=== PATIENT | female | born 1945 | race Caucasian/White ===

== ENCOUNTER 2020-04-11 09:04 | Day surgery (SDC) | payer OTHER ==
--- OUTSIDE RECORDS SUMMARY | 2020-04-11 09:35 | XMS REPORT | Continuity of Care Document ---
:1945 Author Organization [facility] t Address [address] [place] [address] Care Team Providers Name Role Phone Mar Luevano MD Attending Clinician Doctor Unassigned, Name Attending Clinician Unavailable Balta Olivo MD Attending Clinician Problems This patient has no known problems. Allergies, Adverse Reactions, Alerts This patient has no known allergies or adverse reactions. Medications This patient has no known medications. Procedures This patient has no known procedures. Encounters Start End Encounter Admission Attending Care Care Encounter Source Date/Time Date/Time Type Type Clinicians Facility Department ID 2019-04-26 2019-04-26 [facility] [id number] 10:24:00 23:59:00 Encounter Celestino Nails [id number] [place] [id number] [place] [id number] 2019-04-26 2019-04-26 Orders Doctor AKINS [id number] 00:00:00 00:00:00 Only UnassRACHEL he [id number] [place] [facility] [id number] 2018-11-16 2018-11-16 Office Pallavi MTHEBERT [id number] 09:27:00 10:11:00 Visit Randall Nails [id number] [place] [id number] [id number] [facility]92 Building 2018-11-09 2018-11-09 [facility] [id number] 09:54:01 23:59:00 Encounter Randall Nails [id number] [place] [id number] [place] [id number] 2018-11-09 2018-11-09 [place] [id number] 09:53:17 09:53:17 Encounter Randall Nails [id number] [place] [id number] [place] [id number] 2018-10-27 2018-10-27 [place] [id number] 00:00:00 00:00:00 Randall Nails [id number] [place] [id number] [facility] [id number] [facility] Building Results This patient has no known results.
[2020-04-11 09:43] LABS: MPV 8.8 fL (7.6-11.3)
[2020-04-11 10:03] LABS: Protime INR 0.97
[2020-04-11 10:19] LABS: Platelet Estimate ADEQ
[2020-04-11 10:59] VITALS: BMI 26.1
[2020-04-11] MEDS ORDERED: HYDROCODONE/APAP 7.5/325 MG TAB ONE (12:13)
--- NOTE | 2020-04-11 12:38 | RAD REPORT ---
EXAM DESCRIPTION: RAD - L Spine With Bending Views - 04/11/2020 11:50 am CLINICAL HISTORY: Back pain FINDINGS: Mild scoliosis There is good alignment of the lumbar spine from flexion to extension No fracture or dislocation Marked spondylosis L2-3 consisting disc space narrowing, osteophytes and subchondral sclerosis Disc space narrowing L5-S1 A pain pump is in place
[2020-04-11 14:16] VITALS: TEMP 98
[2020-04-11 14:17] VITALS: BP 121/62; O2SAT 96
--- NOTE | 2020-04-11 21:44 | RAD REPORT ---
EXAM DESCRIPTION: CTSpine Lumbar Wo Con04/11/2020 11:48 am CLINICAL HISTORY: Radiculopathy and back pain COMPARISON: None TECHNIQUE: Computed axial tomography lumbar spine was obtained with coronal and sagittal reconstruct ion. 12 cc 200 Isovue is administered into the thecal sac All CT scans are performed using dose optimization technique as appropriate and may include automated exposure control or mA/KV adjustment according to patient size. FINDINGS: Small disc bulge T12-L1 L1-2 unremarkable L2-3 disc is thinned. Vacuum phenomena is present. Subchondral sclerosis involves the vertebral endpl ates. Disc bulge and osteophytes are present. Mild encroachment upon the thecal sac. There is no spin al stenosis. Mild narrowing of the right neural foramina. L3-4 disc is thinned. Vacuum phenomena. Disc bulge with small subligamentous central disc herniation is present. Ligamentum flavum and facet hypertrophy. There is narrowing of the lateral aspects of the thecal sac. Mild narrowing of the neural foramina. Disc bulge and facet hypertrophy L4-5. Mild narrowing of the thecal sac. Mild to moderate narrowing l eft neural foramina L5-S1 disc is thinned. Thecal sac is normal caliber. The neural foramina are patent IMPRESSION: Spondylosis with small central subligamentous disc herniation L3-4. Narrowing of the lat eral aspects of the thecal sac as well as the lateral recesses. Spondylosis as described above Patient experienced immediate complication
--- NOTE | 2020-04-11 21:47 | RAD REPORT ---
EXAM DESCRIPTION: RAD - Myelography Lumbar - 04/11/2020 11:50 am CLINICAL HISTORY: Radiculopathy and back pain COMPARISON: None FINDINGS: The risks, benefits and alternatives to the procedure were explained to the patient and in formed consent obtained. The patient was placed prone into the fluoroscopy suite. The skin and subcutaneous tissues were anest hetized with lidocaine. Under fluoroscopic guidance a 22 gauge spinal needle was advanced into the th ecal sac at L2-3 level. 12 cc Isovue 200 was administered into the thecal sac. Frontal, oblique and lateral views of the lumbar spine were obtained. Fluoroscopy time 1.9 minute. Four fluoroscopic spot images obtained. Qssy-zl-dybazhhh scoliosis involves the spine. Spondylosis involves primarily L2-3, L3-4 and L4-5. Refer to the CT lumbar spine report for additional findings IMPRESSION: Lumbar myelogram.
== END 2020-04-11 14:00 | disposition home health service (06) ==
LOC: DS 09:04
PROVIDERS: ATTEND Specialist
DX: M51.26 Other intervertebral disc displacement, lumbar region (principal); M54.10 Radiculopathy, site unspecified; M47.896 Other spondylosis, lumbar region; M41.86 Other forms of scoliosis, lumbar region; Z20.822 Contact with and (suspected) exposure to COVID-19
CPT/HCPCS: 36415; 85049; 85610; 85730; 72131; 72114; 62304; Q9966

== ENCOUNTER 2021-07-16 14:35 | Day surgery (SDC) | payer OTHER ==
[2021-07-11 10:53] LABS: Absolute Lymphocytes (CBC) 1.7 K/uL (0.7-4.9); Hematocrit 36.9 % (36.0-45.0); MPV 8.8 fL (7.6-11.3); RBC Red Blood Cell Count 4.14 M/uL (3.86-4.86)
[2021-07-11 12:00] LABS: Urine Appearance CLEAR (Clear); Urine Bilirubin NEGATIVE (Negative); Urine Blood NEGATIVE (Negative); Urine Color YELLOW (Yellow); Urine Glucose NEGATIVE (Negative); Urine Microscopic Reflex NO UMIC; Urine Protein NEGATIVE (Negative); Urine Specific Gravity 1.015 (1.005-1.030); Urine Urobilinogen 0.2 mg/dL (0.2-1.0)
[2021-07-16] MEDS: FENTANYL CITR 100 MCG/2 ML ONE ×2 (09:10→09:46)
[2021-07-16] MEDS: Levofloxacin500mg IV 500 MG/100 ML BAG IV ONE ×2 (09:40→10:20)
[2021-07-16] MEDS: Ringers Lactate 1,000 ML IV ONE ×2 (13:21→13:30)
[2021-07-16] MEDS: HYDROMORPHONE HCL 2 MG/ML inj ONE ×4 (13:46→14:01)
[2021-07-16] MEDS: HYDROMORPHONE HCL 1 MG/ML INJ ONE ×2 (14:06→14:12)
--- NOTE | 2021-07-16 14:13 | P.BOP ---
Preoperative diagnosis: anterior stage 2 prolapse, w apical, post defects occult RICKY Postoperative diagnosis: same Primary procedure: bilat SSLFcolpopexy, Ant repair w biologic gragft augmentation Secondary procedure: distal post wall and perineal body repairs, TVT-O cysto Insurance Risk Analyst: Celine Waggoner Estimated blood loss: <50 Specimen: none Findings: 0/+1/-2/6/mod/7/0/-2/na,perineal body defect,cysto w normal efflux Anesthesia: General Complications: None Drain(s): Nasogastric Implants: coloplast dermal graft, TVT-O Fluids & blood products: [id number] Transferred to: Recovery Room Condition: Good
[~2021-07-16 14:35] MED LIST: ACETAMINOPHEN 500 MG TAB PO PRN; CEFAZOLIN SODIUM 1 GM/VIAL ONE; EPHEDRINE SULF 50 MG/ML VIAL ONE; FENTANYL CITR 100 MCG/2 ML ONE; GLYCOPYRROLATE 0.2 MG/ML SYR ONE; HYDROMORPHONE HCL 1 MG/ML INJ IV PRN; KETOROLAC 30 MG/ML INJ ONE; LIDOCAINE 1% MPF 5 ML VIAL ONE; LIDOCAINE 1% W/EPI 1:100,000 MDV 50 ML VIAL ONE; Levofloxacin500mg IV 500 MG/100 ML BAG IV ONE; MEPERIDINE HCL 25 MG/ML SYR ONE; MIDAZOLAM HCL 2 MG/2 ML INJ ONE; NA CHLORIDE 0.9% 100 ML IV ONE; NEOSTIGMINE 1 MG/ML -5 ML ONE; ONDANSETRON 4 MG/2 ML VIAL IV PRN; ONDANSETRON 4 MG/2 ML VIAL ONE; PROMETHAZINE INJ 25 MG/ML AMP IV PRN; Ringers Lactate 1,000 ML IV ONE; VASOPRESSIN 20 UNIT/ML VIAL ONE; dexAMETHasone 10 MG/ML VIAL ONE; propofoL 200 MG/20 ML VIAL IV ONE
[2021-07-16 14:56] VITALS: O2SAT 99
[2021-07-16] MEDS ORDERED: HYDROMORPHONE ORAL 2 MG TAB PO PRN (15:00)
[2021-07-16 16:15] VITALS: BMI 25.9
[2021-07-16] MEDS: Ringers Lactate 1,000 ML IV SCH (18:59)
[2021-07-16] MEDS: HYDROCODONE/APAP 7.5/325 MG TAB PO PRN ×2 (19:06→23:09)
[2021-07-16] MEDS ORDERED: ATORVASTATIN 10 MG TAB PO SCH (21:00)
--- NOTE | 2021-07-17 02:12 | OP ---
Date of Procedure: 07/16/2021 Surgeon: Fay Luna MD Nephrologist: Celine Waggoner. Preoperative Diagnoses: Stage II anterior wall prolapse with apical posterior defect and occult stre ss urinary incontinence. Postoperative Diagnoses: Stage II anterior wall prolapse with apical posterior defect and occult str ess urinary incontinence. Procedures Performed: 1.Bilateral sacrospinous ligament fixation and colpopexy. 2.Anterior repair with biologic graft augmentation. 3.Distal posterior wall repair, perineal body repair, and mid urethral sling (TVT-O). 4.Cystoscopy. Ebl: 50. Anesthesia: General. Complications: No complications. Drains: Solomon catheter. Condition: Stable. Findings: 0, +1, -2, 6, moderate 7, 0, -2 NA perineal body defect, which opened the genital hiatus t o 6 cm. On closure, this was well reduced to 3.5 cm. Cystoscopy was performed with normal ureters o n both sides. This was not quite evident until urethral Glidewire was placed to ensure that they wer e patent. Indications: The patient is a 75-year-old female who complained of symptomatic vaginal prolapse. Th is was evaluated and fully investigated. Given all the different options including pessary, surgical treatment including abdominal and vaginal repairs. Closure would not be feasible so this was exclud ed. The patient was educated on all these then she came back and was consented for vaginal prolapse repair. Past history of prolapse repair in 1963. She has done well on this since. Description Of Procedure: After informed consent was verified she was taken back to the OR, placed i n supine fashion on the table. General anesthesia was given and placed in a dorsal lithotomy positio n. Abdomen, vulva, vagina, and perineum were prepped and draped in a sterile fashion. Solomon was maninder emanuel to drain the bladder. POP-Q was done and is as dictated above. Ischial spines were palpated. Vaginal apex was inspected and anterior defect was well inspected. Midline anterior wall was held with Allis clamps in the distal and proximal part and injected with di lute vasopressin 20 cc in the midline and lateral wall. Midline incision was made with a scalpel and extended with scissors to the urethrovesical junction and to the vaginal apex. Dissection was vannessa ed down to separate the bladder from the underlying fibroconnective tissue all the way to the right p aravaginal space and pararectal space was entered sharply with the help of scissors guiding muscle to the ischial spine and dissection was carried and the spine was cleaned up. There was a slight scar on the right pararectal space that made it difficult for me to the expose the sacrospinous ligament a dequately. So the white line dissection was performed to expose this and then went onto the left cady e. Paravaginal space and pararectal spaces were entered. Ischial spine was palpated. Sacrospinous ligament and the coccygeus muscle were cleaned out and the same was done with the paravaginal space o n the left side. There was a minimal enterocele at the apex, which was corrected as well. 3-0 Monoc ryl was used to put a pursestring suture to reduce the anterior wall. I then went on to open the Capio device with a Prolene suture, took a bite on the left sacrospinous m id ligament and close to the ischial spine within 1 cm on the right side as it was difficult to disse ct much more laterally on the ligament. Potentially she could have had repair here at that time. Then the paravaginal white line was sutured with the Capio PDS similarly on both sides and all of the se were held on retractors. There were three 2-0 Prolene sutures taken in the midline and on both si soco with the proximal end near the vault without entering the vaginal epithelium and superiorly simil ar three 2-0 PDS sutures were taken in the midline and on either side in order for the distal attachm ent of the graft. Graft was fashioned as an 8 x 5 x 6. The anteroposterior diameter was 5 cm. With the culdoplasty do ne, Dermagraft was used for this purpose. The 3 proximal Prolene sutures were tied to the graft and 3 distal midline PDS sutures were tied. Th en sacrospinous sutures were attached as well as the 0 PDS sutures in the middle of the lateral aspec t of the graft. The sacrospinous ligaments were tied all the way down at the level of the sacrospino us and the paravaginal sutures were also placed. There was no tension on the graft. The vaginal epi thelium could be trimmed, however, I resisted the temptation to do this to prevent further vaginal na rrowing. Closure of this epithelium was done with a continuous running 2-0 Vicryl stitch. Attention was directed to the bladder and suburethral area. Two Allis clamps were placed on either s yoselyn of the midline, injected with dilute vasopressin 10 cc in the center as well as on both sides. T he patient was placed in high lithotomy and 1 cm incision was made in the midline. Dissection was pe rformed at a 45-degree angle to the horizontal and vertical planes hugging the inferior pubic ramus a nd the space opened without any difficulty on the right side. On the left side it was slightly more difficult, but was unremarkable. Then wing guide was placed, spike was passed hugging the pubic jose alfredo s, exiting at least 2 cm outside the groin and much more inferior to the adductor longus tendon. Sim ilar pass on the opposite side and mesh was grasped in the middle with the Allis clamp to maintain th e tensioning and once this was done appropriately, the mesh and the sheath were cut and removed. The groin incisions sealed with Dermabond. Irrigation of the mesh was done with the antibiotic solution, closed with the help of 3-0 Vicryl in a continuous running locked fashion. Once this was done, no evidence of any erosion of the lateral lawson lcus. Solomon removed. Cystoscopy performed with the 30 degree lens and then 70 degree. Both ureteri c orifices had jets of urine and the Glidewire was passed just to make sure that they were patent and there was no evidence of any obstruction. Then Solomon was replaced after draining the bladder. Attention directed posteriorly. The remnants of the hymen were held with 2 Allis clamps. Then a triangular incision was made on the perineum after injecting dilute vasopressin 10 cc. This dissection was performed with the help of the scalpel. The n incision was extended superiorly into the posterior vaginal wall. Epithelium and sub epithelium were dissected away from the fibromuscular tissue. It was very difficu lt to perform this on the right lateral aspect and the distal part of the canal. I made sure that all the lateral long were exposed. There was no evidence of any deep transverse pe rineum or bulbospongiosus muscle as this seemed to be replaced with scar tissue. The edges of the sc ar tissue were loosened up without any tension, brought together and sutured with the help of a 2-0 V icryl suture x3. The rest of the perineal body was reconstructed with interrupted 2-0 Vicryl. Then, the distal rectovaginal septum was cleared up with the help of 0 Vicryl sutures. Then, epithelium, without being trimmed, was closed with the help of continuous running lock suture onto the hymen and then subcutaneous suture in here. Three interrupted cutaneous sutures were placed on the top. Recta l exam was negative. No evidence of any injury to the bowel or bleeding. Instrument, needle, and sponge counts were correct. The patient was recovered from anesthesia and ta ayo to PACU in stable condition. PRINCE/ORLY Voice ID: [id number] Report ID: [id number]
[2021-07-17] MEDS: Ringers Lactate 1,000 ML IV SCH (02:13)
[2021-07-17] MEDS: HYDROCODONE/APAP 7.5/325 MG TAB PO PRN ×2 (03:00→08:30)
[2021-07-17 05:57] LABS: Absolute Lymphocytes (CBC) 1.7 K/uL (0.7-4.9); Hematocrit 32.6 % (36.0-45.0); MPV 8.4 fL (7.6-11.3); RBC Red Blood Cell Count 3.62 M/uL (3.86-4.86)
[2021-07-17 06:11] LABS: Potassium 4.1 mmol/L (3.5-5.1)
[2021-07-17] MEDS ORDERED: LEVOTHYROXINE SOD 0.05 MG TABLET PO SCH (06:30)
[2021-07-17] MEDS ORDERED: PNEUMOCOCCAL VACCINE 0.5 ML IMVAC ONE (08:00)
[2021-07-17 08:37] VITALS: BP 139/69; TEMP 98.7
[2021-07-17] MEDS ORDERED: HOME MED 1 EA UNK (Irbesartan [Irbesartan] 300 MG Tablet) PO SCH ×2 (09:00)
[2021-07-17] MEDS ORDERED: EZETIMIBE 10 MG TAB PO SCH (09:00)
[2021-07-17] MEDS ORDERED: PREGABALIN 75 MG CAP PO SCH (09:00)
[2021-07-17] MEDS ORDERED: CELECOXIB 100 MG CAPSULE PO SCH (09:00)
[2021-07-17] MEDS ORDERED: HOME MED 1 EA UNK (Celecoxib [Celebrex] 200 MG Capsule) PO SCH (09:00)
[2021-07-17] MEDS ORDERED: HOME MED 1 EA UNK (Pravastatin Sodium [Pravastatin Sodium] 20 MG Tablet) PO SCH (09:00)
[2021-07-17] MEDS ORDERED: AMLODIPINE 5 MG TAB PO SCH (09:00)
[2021-07-17] MEDS ORDERED: CONJUGATED ESTROGENS VAG SCH (17:00)
== END 2021-07-17 10:47 | disposition home or self-care (01) ==
LOC: OR 14:35 → 2ND-WC 14:36 → OR 07-17 10:47
PROVIDERS: ATTEND Obstetrics & Gynecology
PROC: 0JUC0JZ Supplement of Pelvic Region Subcutaneous Tissue and Fascia with Synthetic Substitute, Open Approach (ICD-10-PCS; 2021-07-16)
PROC: 0JQC0ZZ Repair Pelvic Region Subcutaneous Tissue and Fascia, Open Approach (ICD-10-PCS; 2021-07-16)
PROC: 0HQ9XZZ Repair Perineum Skin, External Approach (ICD-10-PCS; 2021-07-16)
PROC: 0USG7ZZ Reposition Vagina, Via Natural or Artificial Opening (ICD-10-PCS; principal; 2021-07-16 08:30)
DX: N81.2 Incomplete uterovaginal prolapse (principal); N39.3 Stress incontinence (female) (male); I10 Essential (primary) hypertension; K59.03 Drug induced constipation; N39.43 Post-void dribbling; R73.03 Prediabetes; Z20.822 Contact with and (suspected) exposure to COVID-19
CPT/HCPCS: 57282; 57288; 57260; 57267; 85025 ×2; 80048; 36415 ×2; 81003; 94010 ×3; U0002; J2704; J2250; J1170 ×3; J3010 ×3; J1100; J2175; J2710; J7120 ×4; J2405; J2800; J0690

== ENCOUNTER 2023-07-05 23:02 | Emergency (ER) | payer OTHER ==
--- OUTSIDE RECORDS SUMMARY | 2023-07-05 23:06 | XMS REPORT | Continuity of Care Document ---
Author Name Unknown Address [address] [facility] [address] [place] [address] [facility] Address [address] [facility] [address] [place] [address] Care Team Providers Care Cruise Agent Name Role Phone JOEY PAZ Primary Care Physician Laurent lott [email or web address] Attending Clinician Carlos Manuel Lewis MD Attending Clinician [phone] CARLOS MANUEL RANDHAWA Attending Clinician CARLOS MANUEL Awad Attending Clinician Ivis Merlos, [facility] Main Attending Clinician Ivis Shaw MD, Celestino Manuel Attending Clinician [phone] CELESTINO SHAW Attending Clinician Nba mcnally Doctor Unassigned, [place] Attending Clinician Devin Olivo MD, Randall Gifford Attending Clinician 1, [facility] Attending Clinician Gabbie Adame PHD Attending Clinician [phone] [email or web address] Admitting Clinician Laurent lott Payers Payer Name Policy Type Policy Number Effective Date Expirati on Date Source Problems Condition Name Condition Details Condition Category Status Onset Date Resolution Date Last Treatment Date Treating Clinician Comments Source Pain Pain Disease Active 04-21 00:00: 00 [facility] 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 [facility] Allergies, Adverse Reactions, Alerts Allergy Name Allergy Type Status Severity Reaction(s) Onset Date Inactive Date Treating Clinician Comments Source Codeine Propensi ty to adverse reaction s to drug Active Nausea and/or Vomiting 04-24 00:00: 00 [facility] CODEINE DRUG INGREDI Active Med N/V 04-24 00:00: 00 [facility] PENICILL INS Drug Class Active High SOB 04-29 00:00: 00 [facility] Penicill ins Propensi ty to adverse reaction s to drug Active Swelling 04-29 00:00: 00 [facility] Penicill ins Propensi ty to adverse reaction s to drug Active Swelling 04-29 00:00: 00 [facility] Social History Social Habit Start Date Stop Date Quantity Comments [facility] 2019-10-26 00:00:00 2019-10-26 00:00:00 [facility] Alcohol intake 2018-10-26 00:00:00 2018-10-26 00:00:00 0 /d [facility] Tobacco use and exposure 2016-04-14 00:00:00 2016-04-14 00:00:00 Smokeless tobacco non-user [facility] Sex Assigned At [birth year] 00:00:00 [facility] Smoking Status Start Date Stop Date Source Never smoked tobacco [facility] Medications Ordered Medication Name Filled Medication Name Start Date Stop Date Current Medication? Ordering Clinician Indication Dosage Frequency Signature (SIG) Comments Components Source pregabalin (LYRICA) 75 mg capsule 11-16 14:52: 40 11-16 00:00 :00 No 75mg Take 75 mg by mouth 2 (two) times daily. [facility] pregabalin (LYRICA) 75 mg capsule 11-16 00:00: 00 Yes [id number] 75mg Take 1 capsule by mouth 3 (three) times daily. [facility] contrast previously administere d 0 mL 11-09 15:15: 00 11-09 15:32 :00 No Intravenou s, ONCE, 1 dose, 11/09/18 at 1015, Routine [facility] iohexol (OMNIPAQUE 350 BULK-100 mL) injection 100 mL 11-09 15:15: 00 11-09 15:28 :00 No 100mL 100 mL, Intravenou s, ONCE, 1 dose, 11/09/18 at 1015, Routine [facility] diazepam (VALIUM) 5 mg tablet 07-07 16:55: 22 Yes 5mg Take 5 mg by mouth at bedtime. [facility] HYDROmorphO ne (DILAUDID) 2 mg tablet 07-07 16:55: 22 Yes 4mg Take 4 mg by mouth 2 (two) times daily. [facility] pregabalin (LYRICA) 75 mg capsule 07-07 16:55: 22 Yes 75mg Take 75 mg by mouth 2 (two) times daily. [facility] amLODIPine 5 mg tablet 07-07 16:55: 22 Yes 5mg Take 5 mg by mouth daily. [facility] pravastatin 20 mg tablet 07-07 16:55: 22 Yes 20mg Take 20 mg by mouth at bedtime. [facility] irbesartan 300 mg tablet 07-07 16:55: 22 Yes 300mg Take 300 mg by mouth daily. [facility] baclofen 10 mg tablet 07-07 16:55: 22 Yes 10mg Take 10 mg by mouth 3 (three) times daily. [facility] HYDROcodone -acetaminop hen 10-325 mg tablet 07-07 16:55: 22 Yes 1{tbl} Take 1-2 tablets by mouth every 6 (six) hours. [facility] fluticasone -vilanterol (BREO ELLIPTA) 100-25 mcg/dose DsDv 07-07 16:55: 22 Yes 1{puff} Inhale 1 Puff daily. [facility] CELEBREX 200 MG ORAL CAP 07-07 16:55: 22 Yes Take 200 mg by mouth daily. [facility] levothyroxi ne (SYNTHROID) 50 mcg tablet 07-07 16:55: 22 Yes 50ug Take 50 mcg by mouth every morning. [facility] CELEBREX 200 MG ORAL CAP 07-07 11:55: 22 Yes Take 200 mg by mouth daily. [facility] levothyroxi ne (SYNTHROID) 50 mcg tablet 07-07 11:55: 22 Yes 50ug Take 50 mcg by mouth every morning. [facility] diazepam (VALIUM) 5 mg tablet 07-07 11:55: 22 Yes 5mg Take 5 mg by mouth at bedtime. [facility] HYDROmorphO ne (DILAUDID) 2 mg tablet 07-07 11:55: 22 Yes 4mg Take 4 mg by mouth 2 (two) times daily. [facility] amLODIPine 5 mg tablet 07-07 11:55: 22 Yes 5mg Take 5 mg by mouth daily. [facility] pravastatin 20 mg tablet 07-07 11:55: 22 Yes 20mg Take 20 mg by mouth at bedtime. [facility] irbesartan 300 mg tablet 07-07 11:55: 22 Yes 300mg Take 300 mg by mouth daily. [facility] baclofen 10 mg tablet 07-07 11:55: 22 Yes 10mg Take 10 mg by mouth 3 (three) times daily. [facility] HYDROcodone -acetaminop hen 10-325 mg tablet 07-07 11:55: 22 Yes 1{tbl} Take 1-2 tablets by mouth every 6 (six) hours. [facility] fluticasone -vilanterol (BREO ELLIPTA) 100-25 mcg/dose DsDv 07-07 11:55: 22 Yes 1{puff} Inhale 1 Puff daily. [facility] Vital Signs Vital Name Observation Time Observation Value Comments S everardo Systolic blood pressure 2018-11-16 14:29:00 116 mm[Hg] [facility] Diastolic blood pressure 2018-11-16 14:29:00 65 mm[Hg] [facility] Heart rate 2018-11-16 14:29:00 76 /min [facility] Body temperature 2018-11-16 14:29:00 36.33 [facility] Respiratory rate 2018-11-16 14:29:00 22 /min [facility] Body height 2018-11-16 14:29:00 162.6 cm [facility] Body weight 2018-11-16 14:29:00 65.499 kg [facility] BMI 2018-11-16 14:29:00 24.79 kg/m2 [facility] Systolic blood pressure 2018-11-16 14:29:00 116 mm[Hg] [facility] Diastolic blood pressure 2018-11-16 14:29:00 65 mm[Hg] [facility] Heart rate 2018-11-16 14:29:00 76 /min [facility] Body temperature 2018-11-16 14:29:00 36.33 [facility] Respiratory rate 2018-11-16 14:29:00 22 /min [facility] Body height 2018-11-16 14:29:00 162.6 cm [facility] Body weight 2018-11-16 14:29:00 65.499 kg [facility] BMI 2018-11-16 14:29:00 24.79 kg/m2 [facility] Systolic blood pressure 2018-10-26 21:51:00 130 mm[Hg] [place] [facility] Diastolic blood pressure 2018-10-26 21:51:00 71 mm[Hg] [facility] Heart rate 2018-10-26 21:51:00 84 /min [facility] Body temperature 2018-10-26 21:51:00 36.61 Ashley [facility] Respiratory rate 2018-10-26 21:51:00 17 /min [facility] Body height 2018-10-26 21:51:00 162.6 cm [facility] Body weight 2018-10-26 21:51:00 65.772 kg [facility] BMI 2018-10-26 21:51:00 24.89 kg/m2 [facility] Procedures Procedure Date / Time Performed Performing Clinicia n Source CONSENT/REFUSAL FOR DIAGNOSIS AND TREATMENT 2022-12-31 15:26:13 Doctor Unassigned, [place] [facility] ASSIGNMENT OF BENEFITS 2022-12-31 15:25:53 Docto r Unassigned, [place] [facility] XR LUMBAR SPINE 2 VW 2019-04-26 16:38:40 Aaron Shaw [facility] ASSIGNMENT OF BENEFITS 2019-04-26 16:19:35 Docto r Unassigned, [place] [facility] CT ANGIOGRAM HEAD 2018-11-09 15:39:20 Randall Olivo [facility] CT ANGIOGRAM NECK 2018-11-09 15:38:07 Randall Olivo [facility] CONSENT/REFUSAL FOR DIAGNOSIS AND TREATMENT 2018-11-09 14:51:02 Doctor Unassigned, [place] [facility] ASSIGNMENT OF BENEFITS 2018-11-09 14:50:43 Docto r Unassigned, [place] [facility] ASSIGNMENT OF BENEFITS 2018-10-26 20:32:06 Docto r Unassigned, [place] [facility] Encounters Start Date/Time End Date/Time Encounter Type Admission Type Attending Clinicians Care Facility Care Department Encounter ID Source 2023-01-20 00:00:00 2023-01-20 00:00:00 Outpatient [email or web address] diyala_S [facility] [id number] [facility] 2023-01-14 16:58:00 2023-01-14 23:59:00 Hospital Encounter Darrell Carlos Manuel Ducnan [facility] 1.114 350.1.13.10 4.2.7.2.686 [id number] [facility] 2023-01-14 00:00:00 2023-01-14 23:59:00 Outpatient R CARLOS MANUEL RANDHAWA [facility] OUT [id number] [facility] 2022-12-31 10:30:00 2022-12-31 10:45:00 [employer] Developer Visit Pob, [facility].114 350.1.13.10 4.2.7.2.686 [id number] [facility] 2022-12-31 10:30:00 2022-12-31 10:30:00 Outpatient R CELESTINO SHAW [facility] [id number] [facility] 2022-12-31 00:00:00 2022-12-31 00:00:00 Orders Only Doctor Unassigned, [place] [facility] 1.114 350.1.13.10 4.2.7.2.686 [id number] [facility] 2019-04-26 10:24:00 2019-04-26 23:59:00 [facility] 350.1.13.10 4.2.7.2.686 [id number] 2019-04-26 10:24:00 2019-04-26 23:59:00 Hospital Encounter Celestino Shaw [facility] 1..114 350.1.13.10 4.2.7.2.686 [id number] [facility] 2019-04-26 00:00:00 2019-04-26 00:00:00 Orders Only Doctor Unassigned, [place] [facility] 1.2.840.114 350.1.13.10 4.2.7.2.686 [id number] 2019-04-26 00:00:00 2019-04-26 00:00:00 Orders Only Doctor Unassigned, [place] [facility] 1.2.840.114 350.1.13.10 4.2.7.2.686 [id number] [facility] 2018-11-16 09:27:00 2018-11-16 10:11:00 Office Visit Randall Olivo [facility] 1.2.840.114 350.1.13.10 4.2.7.2.686 [id number] 2018-11-16 09:27:00 2018-11-16 10:11:00 Office Visit Randall Olivo [facility] 1.2.840.114 350.1.13.10 4.2.7.2.686 [id number] [facility] 2018-11-09 09:54:01 2018-11-09 23:59:00 Hospital Encounter Randall Olivo [facility] 1.2.840.114 350.1.13.10 4.2.7.2.686 [id number] 2018-11-09 09:54:01 2018-11-09 23:59:00 Hospital Encounter Randall Olivo [facility] 1.2.840.114 350.1.13.10 4.2.7.2.686 [id number] [facility] 2018-11-09 09:53:17 2018-11-09 09:53:17 Hospital Encounter Pallavi [facility] 1.2.840.114 350.1.13.10 4.2.7.2.686 [id number] [facility] 2018-11-09 09:53:17 2018-11-09 09:53:17 Hospital Encounter Randall Olivo [facility] 1.2.840.114 350.1.13.10 4.2.7.2.686 [id number] 2018-10-27 00:00:00 2018-10-27 00:00:00 Telephone Randall Olivo [facility] 1.2.840.114 350.1.13.10 4.2.7.2.686 [id number] [facility] 2018-10-27 00:00:00 2018-10-27 00:00:00 Telephone Randall Olivo [facility] 1.2.840.114 350.1.13.10 4.2.7.2.686 [id number] 2018-10-26 17:19:12 2018-10-26 17:34:12 [employer] Et[employer] Developer Visit 1, [facility] Alyssa Gabbie Randall Pichardo [facility] 1.2.840.114 350.1.13.10 4.2.7.2.686 [id number] [facility] 2018-10-26 16:24:25 2018-10-26 17:09:11 Office Visit Randall Olivo [facility] 1.2.840.114 350.1.13.10 4.2.7.2.686 [id number] [facility] 2018-10-26 00:00:00 2018-10-26 00:00:00 Orders Only Doctor Unassigned, [place] [facility] 1.2.840.114 350.1.13.10 4.2.7.2.686 [id number] [facility] Results Test Description Test Time Test Comments Results Result Comments Source XR LUMBAR SPINE 2 VW 2019-04 16:59:3 7 HISTORY: ?Low back pain. FINDINGS: AP and lateral views of the lumbar spines are obtained andcompared with 04/24/2015 study. 5 lumbar vertebrae with no acute compressionfracture or dislocation. No aggressive bone lesions. Atherosclerosis withcalcification noted in the aorta and iliac arteries without an aorticaneurysm. Moderate levoscoliosis in the AP view noted. Note made of constipation. L2-L3: Disc space is narrowed by more than 70% with vacuum phenomenon,endplate sclerosis and osteophytes along the vertebral margins. Slightinterval worsening in the severity of changes noted since April 2015ud. L3-L4: Disc space is narrowed by more than 70% with small osteophytes alongthe ventral vertebral margins. Minimal worsening in the severity notedsince 2015 study. L5-S1: Disc space is narrowed by more than 60% withdegeneration/calcification in the disc material and soft small osteophytesalong the ventral vertebral margins, unchanged. Facet arthritis noted at lower 3 lumbar levels. Since the previous study,intrathecal catheter is inserted with the tip of the catheter located atthe level of T12. Sacroiliac joints appear normal. CONCLUSIONS:1. Mid lumbar levoscoliosis.2. Degenerative disc disease at L2-L3, L3-L4 with interval worsening sinceFebruary 2015 study. [facility], [facility] Results Inft User - 04/26/2019 11:00 AM CSTHISTORY: Low back pain.FINDINGS: AP and lateral views of the lumbar spines are obtained andcompared with 04/24/2015 study. 5 lumbar vertebrae with no acute compressionfracture or dislocation. No aggressive bone lesions. Atherosclerosis withcalcification noted in the aorta and iliac arteries without an aorticaneurysm.Moderate levoscoliosis in the AP view noted. Note made of constipation.L2-L3: Disc space is narrowed by more than 70% with vacuum phenomenon,endplate sclerosis and osteophytes along the vertebral margins. Slightinterval worsening in the severity of changes noted since April 2015ud.L3-L4: Disc space is narrowed by more than 70% with small osteophytes alongthe ventral vertebral margins. Minimal worsening in the severity notedsince 2016 study.L5-S1: Disc space is narrowed by more than 60% withdegeneration/calcification in the disc material and soft small osteophytesalong the ventral vertebral margins, unchanged.Facet arthritis noted at lower 3 lumbar levels. Since the previous study,intrathecal catheter is inserted with the tip of the catheter located atthe level of T12. Sacroiliac joints appear normal.CONCLUSIONS:1. Mid lumbar levoscoliosis.2. Degenerative disc disease at L2-L3, L3-L4 with interval worsening sinceFebruary 2016 study. [facility] CT ANGIOGRAM HEAD 2018-10 16:23:0 8 No significant stenosis or aneurysm is present in the intracranial orcervical vessels Of note, evaluation for potential trigeminal neuralgia is significantlylimited due to poor visualization of the trigeminal nerves on the currentstudy. If there is persistent clinical concern for trigeminal neuralgia, anMRI of brain utilizing trigeminal neuralgia protocol may provide moreinformation.* * * * * * * * ORIGINAL REPORT * * * * * * * *CT ANGIOGRAM HEAD,CT ANGIOGRAM NECK HISTORY: Female 73 years left sided facial pain, consider trigeminalneuralgia or temporal arteritis. COMPARISON: None TECHNIQUE: Routine CTA head and neck were performed following theadministration of IV contrast. Coronal and sagittal MIP images weregenerated and reviewed. FINDINGS: CTA head: The PICA origin is visualized bilaterally. The basilar artery is normal incaliber. The superior cerebellar arteries are patent. The posteriorcerebral arteries are patent. A medium-sized right posterior communicatingartery is present and a small left posterior communicating artery ispresent. The distal cervical, petrous, cavernous and supraclinoid internal carotidartery segments are patent. The anterior and middle cerebral arteries arepatent. The brain parenchyma is grossly unremarkable. CTA NECK: Classic 3 vessel aortic arch branching anatomy is noted. The arch and archvessel origins are widely patent. The innominate and subclavian arteriesare widely patent. The common carotid arteries are widely patent. The carotid bulbs andcervical internal carotid arteries are widely patent. Trace atheroscleroticcalcifications are seen in the right bulb and proximal cervical ICA. The vertebral arteries are patent from their subclavian origins through thevertebrobasilar junction. The vertebral arteries are codominant. Mildatherosclerotic plaque at the origin of the right vertebral artery resultsin no more than mild luminal narrowing. [facility], [facility] Inft User - 11/09/2018 11:37 AM CDT* * * * * * * * ORIGINAL REPORT * * * * * * * *CT ANGIOGRAM HEAD,CT ANGIOGRAM NECKHISTORY: Female 73 years left sided facial pain, consider trigeminalneuralgia or temporal arteritis. COMPARISON: NoneTECHNIQUE: Routine CTA head and neck were performed following theadministration of IV contrast. Coronal and sagittal MIP images weregenerated and reviewed.FINDINGS:CTA head:The PICA origin is visualized bilaterally. The basilar artery is normal incaliber. The superior cerebellar arteries are patent. The posteriorcerebral arteries are patent. A medium-sized right posterior communicatingartery is present and a small left posterior communicating artery ispresent.The distal cervical, petrous, cavernous and supraclinoid internal carotidartery segments are patent. The anterior and middle cerebral arteries arepatent.The brain parenchyma is grossly unremarkable.CTA NECK:Classic 3 vessel aortic arch branching anatomy is noted. The arch and archvessel origins are widely patent. The innominate and subclavian arteriesare widely patent.The common carotid arteries are widely patent. The carotid bulbs andcervical internal carotid arteries are widely patent. Trace atheroscleroticcalcifications are seen in the right bulb and proximal cervical ICA.The vertebral arteries are patent from their subclavian origins through thevertebrobasilar junction. The vertebral arteries are codominant. Mildatherosclerotic plaque at the origin of the right vertebral artery resultsin no more than mild luminal narrowing.IMPRESSIONNo significant stenosis or aneurysm is present in the intracranial orcervical vesselsOf note, evaluation for potential trigeminal neuralgia is significantlylimited due to poor visualization of the trigeminal nerves on the currentstudy. If there is persistent clinical concern for trigeminal neuralgia, anMRI of brain utilizing trigeminal neuralgia protocol may provide moreinformation. [facility] CT ANGIOGRAM NECK 2018-10 16:23:0 8 No significant stenosis or aneurysm is present in the intracranial orcervical vessels Of note, evaluation for potential trigeminal neuralgia is significantlylimited due to poor visualization of the trigeminal nerves on the currentstudy. If there is persistent clinical concern for trigeminal neuralgia, anMRI of brain utilizing trigeminal neuralgia protocol may provide moreinformation.* * * * * * * * ORIGINAL REPORT * * * * * * * *CT ANGIOGRAM HEAD,CT ANGIOGRAM NECK HISTORY: Female 73 years left sided facial pain, consider trigeminalneuralgia or temporal arteritis. COMPARISON: None TECHNIQUE: Routine CTA head and neck were performed following theadministration of IV contrast. Coronal and sagittal MIP images weregenerated and reviewed. FINDINGS: CTA head: The PICA origin is visualized bilaterally. The basilar artery is normal incaliber. The superior cerebellar arteries are patent. The posteriorcerebral arteries are patent. A medium-sized right posterior communicatingartery is present and a small left posterior communicating artery ispresent. The distal cervical, petrous, cavernous and supraclinoid internal carotidartery segments are patent. The anterior and middle cerebral arteries arepatent. The brain parenchyma is grossly unremarkable. CTA NECK: Classic 3 vessel aortic arch branching anatomy is noted. The arch and archvessel origins are widely patent. The innominate and subclavian arteriesare widely patent. The common carotid arteries are widely patent. The carotid bulbs andcervical internal carotid arteries are widely patent. Trace atheroscleroticcalcifications are seen in the right bulb and proximal cervical ICA. The vertebral arteries are patent from their subclavian origins through thevertebrobasilar junction. The vertebral arteries are codominant. Mildatherosclerotic plaque at the origin of the right vertebral artery resultsin no more than mild luminal narrowing. [facility], Rad[facility] Results Inft User - 11/09/2018 11:25 AM CDT* * * * * * * * ORIGINAL REPORT * * * * * * * *CT ANGIOGRAM HEAD,CT ANGIOGRAM NECKHISTORY: Female 73 years left sided facial pain, consider trigeminalneuralgia or temporal arteritis. COMPARISON: NoneTECHNIQUE: Routine CTA head and neck were performed following theadministration of IV contrast. Coronal and sagittal MIP images weregenerated and reviewed.FINDINGS:CTA head:The PICA origin is visualized bilaterally. The basilar artery is normal incaliber. The superior cerebellar arteries are patent. The posteriorcerebral arteries are patent. A medium-sized right posterior communicatingartery is present and a small left posterior communicating artery ispresent.The distal cervical, petrous, cavernous and supraclinoid internal carotidartery segments are patent. The anterior and middle cerebral arteries arepatent.The brain parenchyma is grossly unremarkable.CTA NECK:Classic 3 vessel aortic arch branching anatomy is noted. The arch and archvessel origins are widely patent. The innominate and subclavian arteriesare widely patent.The common carotid arteries are widely patent. The carotid bulbs andcervical internal carotid arteries are widely patent. Trace atheroscleroticcalcifications are seen in the right bulb and proximal cervical ICA.The vertebral arteries are patent from their subclavian origins through thevertebrobasilar junction. The vertebral arteries are codominant. Mildatherosclerotic plaque at the origin of the right vertebral artery resultsin no more than mild luminal narrowing.IMPRESSIONNo significant stenosis or aneurysm is present in the intracranial orcervical vesselsOf note, evaluation for potential trigeminal neuralgia is significantlylimited due to poor visualization of the trigeminal nerves on the currentstudy. If there is persistent clinical concern for trigeminal neuralgia, anMRI of brain utilizing trigeminal neuralgia protocol may provide moreinformation. [facility]
[2023-07-05] MEDS ORDERED: NA CHLORIDE 0.9% 1,000 ML ONE (23:35)
[2023-07-05 23:46] LABS: Absolute Eosinophils 0.2 K/uL (0-0.5); Absolute Lymphocytes (CBC) 2.4 K/uL (0.7-4.9); Absolute Monocytes 0.7 K/uL (0.1-1.3); Absolute Neutrophil 4.3 K/uL (1.8-8.0); Basophils % 0.6 % (0-1.3); Eosinophils % 2.4 % (0-4.4); Hematocrit 37.4 % (36.0-45.0); Hemoglobin 12.5 g/dL (12.0-15.0); Lymphocytes % 31.3 % (15.3-44.8); MCH 29.9 pg (27.0-35.0); MCHC 33.4 g/dL (32.0-36.0); MCV 89.8 fL (80-100); MPV 8.4 fL (7.6-11.3); Monocytes % 8.7 % (3.3-12.3); Platelets 224 thou/uL (152-406); RBC Red Blood Cell Count 4.16 M/uL (3.86-4.86)
[2023-07-06] MEDS ORDERED: HYDROCODONE/APAP 5/325 MG TAB ONE (00:09)
[2023-07-06 00:15] LABS: Specific Gravity 1.005 (1.005-1.030); Sqamous Epithelial <5 /HPF (None Seen); Urine Bacteria None Seen /HPF (<20); Urine Bilirubin NEGATIVE (Negative); Urine Blood Negative (Negative); Urine Clarity Clear (Clear); Urine Color Dark-Yellow (Yellow); Urine Culture Reflex Order NOT NEEDED; Urine Glucose NEGATIVE (Negative); Urine Ketones NEGATIVE (Negative); Urine Microscopic Reflex YN ORDER UMIC; Urine Nitrite NEGATIVE (Negative); Urine Protein NEGATIVE (Negative); Urine RBC None Seen /HPF (None Seen); Urine Urobilinogen Normal (Normal); Urine WBC <5 /HPF (<5); Urine pH 6.5 (5.0-7.0)
[2023-07-06 00:17] LABS: Albumin 4.1 g/dL (3.4-5.0); Albumin/Globulin Ratio 1.1 (1.1-1.8); Anion Gap 10.7 mEq/L (5.0-15.0); Bilirubin Total 0.6 mg/dL (0.2-1.0); Globulin 3.8 g/dL (2.3-3.5); Potassium 3.7 mEq/L (3.5-5.1); Protein, Total 7.9 g/dL (6.4-8.2)
--- NOTE | 2023-07-06 00:54 | EDPHYS ---
Physician Documentation [facility] Name: Felisa Aguilar Age: 77 yrs Sex: Female : 1945 Arrival Date: 07/05/2023 Time: 23:02 Bed 4 Private MD: ED Physician Reynaldo Camarillo HPI: 07/04 23:24 This 77 yrs old Female presents to ER via Ambulatory with complaints of Pain With sp3 Urination. 23:24 77-year-old female with history of hypertension, frequent UTIs, prior pyelonephritis sp3 who also has a pain pump in place for her back now presents to the ED with dysuria, urinary frequency and feelings of a bladder infection. Patient also has low back pain. She denies any gross hematuria, chest pain, abdominal pain, nausea, vomiting, diarrhea, fever, bleeding, rash, or any other signs or symptoms on ROS at this time.. Historical: - Allergies: 23:21 PENICILLINS; cm10 - PMHx: 23:21 Chronic back pain; Hypertensive disorder; cm10 - PSHx: 23:21 Bladder Lift; Pain Pump; cm10 - Immunization history:: Adult Immunizations up to date. - Infectious Disease History:: Denies. - Social history:: Smoking status: Patient denies any tobacco usage or history of. ROS: 23:25 Constitutional: Negative for fever, chills, and weight loss, Eyes: Negative for injury, sp3 pain, redness, and discharge, ENT: Negative for injury, pain, and discharge, Neck: Negative for injury, pain, and swelling, Cardiovascular: Negative for chest pain, palpitations, and edema, Respiratory: Negative for shortness of breath, cough, wheezing, and pleuritic chest pain, Back: Negative for injury and pain, MS/Extremity: Negative for injury and deformity, Skin: Negative for injury, rash, and discoloration, Neuro: Negative for headache, weakness, numbness, tingling, and seizure, Psych: Negative for depression, anxiety, suicide ideation, homicidal ideation, and hallucinations, Allergy/Immunology: Negative for hives, rash, and allergies, Endocrine: Negative for neck swelling, polydipsia, polyuria, polyphagia, and marked weight changes, Hematologic/Lymphatic: Negative for swollen nodes, abnormal bleeding, and unusual bruising, 23:25 All other systems are negative, Exam: 23:25 Constitutional: This is a well developed, well nourished patient who is awake, alert, sp3 and in no acute distress. Head/Face: Normocephalic, atraumatic. Eyes: Pupils equal round and reactive to light, extra-ocular motions intact. Lids and lashes normal. Conjunctiva and sclera are non-icteric and not injected. Cornea within normal limits. Periorbital areas with no swelling, redness, or edema. Neck: Trachea midline, no thyromegaly or masses palpated, and no cervical lymphadenopathy. Supple, full range of motion without nuchal rigidity, or vertebral point tenderness. No Meningismus. Chest/axilla: Normal chest wall appearance and motion. Nontender with no deformity. No lesions are appreciated. Cardiovascular: Regular rate and rhythm with a normal S1 and S2. No gallops, murmurs, or rubs. Normal PMI, no JVD. No pulse deficits. Respiratory: Lungs have equal breath sounds bilaterally, clear to auscultation and percussion. No rales, rhonchi or wheezes noted. No increased work of breathing, no retractions or nasal flaring. Back: No spinal tenderness. No costovertebral tenderness. Full range of motion. Skin: Warm, dry with normal turgor. Normal color with no rashes, no lesions, and no evidence of cellulitis. MS/ Extremity: Pulses equal, no cyanosis. Neurovascular intact. Full, normal range of motion. Neuro: Awake and alert, GCS 15, oriented to person, place, time, and situation. Cranial nerves II-XII grossly intact. Motor strength 5/5 in all extremities. Sensory grossly intact. Cerebellar exam normal. Normal gait. Psych: Awake, alert, with orientation to person, place and time. Behavior, mood, and affect are within normal limits. 23:25 Cardiovascular: Heart rate 10 5-1 10, 23:25 Abdomen/GI: Mild pain over bladder to palpation. Otherwise no other abdominal pain, rebound, guarding or other peritoneal signs. Patient is in no acute distress., Vital Signs: 23:20 BP 163 / 79; Pulse 114; Resp 18; Temp 98.4(O); Pulse Ox 97% on R/A; Weight 68.95 kg; cm10 Height 5 ft. 4 in. ; Pain 12/30; 07/05 00:35 BP 153 / 81; Pulse 93; Resp 18; Pulse Ox 100% ; cm10 07/04 23:20 Body Mass Index 26.09 (68.95 kg, 162.56 cm) cm10 07/04 23:20 Pain Scale: Adult cm10 MDM: 07/04 23:20 Patient medically screened. sp3 23:26 Data reviewed: vital signs, nurses notes, lab test result(s), radiologic studies. ED sp3 course: 77-year-old female with dysuria symptoms. Differential diagnosis includes UTI, pyelonephritis, kidney stone, other GI pathology, other [place] pathology, among others. Workup will include UA, laboratory values, normal saline IV, and CT scan of the abdomen pelvis noncontrast in the kidney stone protocol. Disposition pending workup and patient course.. 07/05 00:52 ED course: Full workup negative including urine. Patient says she has an infection and sp3 requests us to put her on antibiotic. I see no real harm in this so we will go ahead and give her a dose here and discharged home on Bactrim.. 07/04 23:22 Order name: CBC with Diff; Complete Time: 00:20 sp3 07/04 23:22 Order name: CMP; Complete Time: 00:20 sp3 07/04 23:22 Order name: Lipase; Complete Time: 00:20 sp3 07/04 23:22 Order name: Urinalysis w/ reflexes; Complete Time: 00:20 sp3 07/04 23:22 Order name: CT Abd/Pelvis - Without Contrast sp3 07/04 23:22 Order name: IV Saline Lock; Complete Time: 23:35 sp3 07/04 23:22 Order name: Labs collected and sent; Complete Time: 23:35 sp3 Administered Medications: 07/04 23:36 Drug: NS 0.9% IV 1000 ml IV at 1 bolus Per protocol; 1000 mL bolus Route: IV; Rate: 1 cm10 bolus; Site: right forearm; 07/05 01:06 Follow up: Response: No adverse reaction; IV Status: Completed infusion; IV Intake: cm10 1000ml 00:15 Drug: HYDROcodone-acetaminophen PO 5 mg-325 mg 2 tabs PO once Route: PO; cm10 01:06 Follow up: Response: No adverse reaction cm10 01:06 Drug: Bactrim PO 160 mg-800 mg (DS) 160 mg PO every 6 hours Route: PO; cm10 01:06 Follow up: Response: Medication administered at discharge. cm10 Disposition Summary: 07/06/23 00:53 Discharge Ordered Notes: Location: Home sp3 Condition: Stable sp3 Diagnosis - Dysuria, abdominal pain sp3 Followup: sp3 - With: Private Physician - When: Upon discharge from the Emergency Department - Reason: Continuance of care Discharge Instructions: - Discharge Summary Sheet sp3 - Abdominal Pain, Adult sp3 Forms: - Medication Reconciliation Form sp3 - Thank You Letter sp3 - Antibiotic Education sp3 - Prescription Opioid Use sp3 - Patient Portal Instructions sp3 - Leadership Thank You Letter sp3 Prescriptions: - Bactrim DS 800-160 mg Oral Tablet - take 1 tablet ORAL route every 12 hours for 7 days; 14 tablet; Refills: 0, sp3 Product Selection Permitted Signatures: Dispatcher [employer] Reynaldo Jones MD MD sp3 Luci Capps RN RN cm10
--- NOTE | 2023-07-06 00:54 | ER ---
Nurse's Notes [facility] Name: Felisa Aguilar Age: 77 yrs Sex: Female : 1945 Arrival Date: 07/05/2023 Time: 23:02 Bed 4 Private MD: Diagnosis: Dysuria, abdominal pain Presentation: 07/04 23:20 Chief complaint: Patient states: Pain with urination and low back pain onset today. cm10 Coronavirus screen: Client denies travel out of the [place] in the last 14 days. At this time, the client does not indicate any symptoms associated with coronavirus-19. Ebola Screen: Patient denies travel to an Ebola-affected area in the 21 days before illness onset. No symptoms or risks identified at this time. Initial Sepsis Screen: Does the patient meet any 2 criteria? HR > 90 bpm. Does the patient have a suspected source of infection? No. Patient's initial sepsis screen is negative. Risk Assessment: Do you want to hurt yourself or someone else? Patient reports no desire to harm self or others. Onset of symptoms was July 05, 2023. 23:20 Method Of Arrival: Ambulatory cm10 23:20 Acuity: LORIE 3 cm10 Triage Assessment: 23:22 General: Appears in no apparent distress. uncomfortable, Behavior is calm, cooperative. cm10 Pain: Complains of pain in back Pain currently is 10 out of 10 on a pain scale. Neuro: No deficits noted. Level of Consciousness is awake, alert, obeys commands, Oriented to person, place, time, situation. Respiratory: No deficits noted. Airway is patent Respiratory effort is even, unlabored, Respiratory pattern is regular, symmetrical. : Reports burning with urination. Derm: No deficits noted. Skin is intact, Skin is pink, warm \T\ dry. Musculoskeletal: No deficits noted. Range of motion: intact in all extremities, Reports pain in back. Historical: - Allergies: 23:21 PENICILLINS; cm10 - PMHx: 23:21 Chronic back pain; Hypertensive disorder; cm10 - PSHx: 23:21 Bladder Lift; Pain Pump; cm10 - Immunization history:: Adult Immunizations up to date. - Infectious Disease History:: Denies. - Social history:: Smoking status: Patient denies any tobacco usage or history of. Screenin:37 [facility] ED Fall Risk Assessment (Adult) History of falling in the last 3 months, cm10 including since admission No falls in past 3 months (0 pts) Confusion or Disorientation No (0 pts) Intoxicated or Sedated No (0 pts) Impaired Gait No (0 pts) Mobility Assist Device Used No (0 pt) Altered Elimination No (0 pt) Score/Fall Risk Level 0 - 2 = Low Risk Oriented to surroundings, Maintained a safe environment, Hourly rounding (assess needs \T\ fall precautionary measures) done. Abuse screen: Denies threats or abuse. Denies injuries from another. Nutritional screening: No deficits noted. Tuberculosis screening: No symptoms or risk factors identified. Vital Signs: 23:20 BP 163 / 79; Pulse 114; Resp 18; Temp 98.4(O); Pulse Ox 97% on R/A; Weight 68.95 kg; cm10 Height 5 ft. 4 in. ; Pain 12/30; 07/05 00:35 BP 153 / 81; Pulse 93; Resp 18; Pulse Ox 100% ; cm10 07/04 23:20 Body Mass Index 26.09 (68.95 kg, 162.56 cm) cm10 07/04 23:20 Pain Scale: Adult cm10 ED Course: 07/04 23:06 Patient arrived in ED. im 23:18 Reynaldo Camarillo MD is Attending Physician. sp3 23:20 Luci Capps, RN is Primary Nurse. cm10 23:21 Triage completed. cm10 23:23 Arm band placed on Patient placed in an exam room, on a stretcher, on pulse oximetry. cm10 23:35 CBC with Diff Sent. rv 23:35 CMP Sent. rv 23:35 Lipase Sent. rv 23:37 Patient has correct armband on for positive identification. Bed in low position. Call cm10 light in reach. Side rails up X2. Provided Education on: ER process and procedures. 23:37 Urinalysis w/ reflexes Sent. cm10 23:37 Initial lab(s) drawn, by me, sent to lab. Urine collected: clean catch specimen, fareed cm10 colored. Inserted saline lock: 20 gauge in right forearm, using aseptic technique. Blood collected. 23:[address] via stretcher. cm10 23:53 CT Abd/Pelvis - Without Contrast In Process Unspecified. EDMS 23:[address] cm10 07/05 01:07 No provider procedures requiring assistance completed. IV discontinued, intact, cm10 bleeding controlled, No redness/swelling at site. Pressure dressing applied. Administered Medications: 07/04 23:36 Drug: NS 0.9% IV 1000 ml IV at 1 bolus Per protocol; 1000 mL bolus Route: IV; Rate: 1 cm10 bolus; Site: right forearm; 07/05 01:06 Follow up: Response: No adverse reaction; IV Status: Completed infusion; IV Intake: cm10 1000ml 00:15 Drug: HYDROcodone-acetaminophen PO 5 mg-325 mg 2 tabs PO once Route: PO; cm10 01:06 Follow up: Response: No adverse reaction cm10 01:06 Drug: Bactrim PO 160 mg-800 mg (DS) 160 mg PO every 6 hours Route: PO; cm10 01:06 Follow up: Response: Medication administered at discharge. cm10 Medication: 07/04 23:37 VIS not applicable for this client. cm10 Intake: 07/05 01:06 IV: 1000ml; Total: 1000ml. cm10 Outcome: 00:53 Discharge ordered by . sp3 01:07 Discharged to home ambulatory, Pt waiting for ride in [employer]. cm10 01:07 Condition: good 01:07 Discharge instructions given to patient, Instructed on discharge instructions, follow up and referral plans. medication usage, Demonstrated understanding of instructions, follow-up care, medications, Prescriptions given X 1, 01:07 Patient left the ED. cm10 Signatures: Dispatcher [employer] Tad Sanon RN RN rv Patel, Setul, MD MD sp3 Dorcas Galvez Clarissa, RN RN cm10
[2023-07-06] MEDS ORDERED: SMZ./TMP. 800/160 MG TABLET ONE (00:59)
[2023-07-06 04:37] VITALS: BP 153/81; TEMP 98.4; O2SAT 100
--- NOTE | 2023-07-08 22:49 | RAD REPORT ---
EXAM DESCRIPTION: CT - Abdomen Pelvis Wo Contrast - 07/06/2023 7:03 am CLINICAL HISTORY: 77 years Female; FLANK PAIN; NO CONTRAST Bed Name: 4 TECHNIQUE: CT of the abdomen and pelvis without contrast. All CT scans at this facility use dose modulation, iterative reconstruction, and/or weight based dosi ng when appropriate to reduce radiation dose to as low as reasonably achievable. COMPARISON: None. FINDINGS: Lower thorax: Lung bases are clear Abdomen: Stomach: Within normal limits Liver: No focal lesions. No intrahepatic ductal distention. Gallbladder: Nondistended Pancreas: Within normal limits Spleen: Within normal limits Right kidney: No hydronephrosis. No renal or ureteral calculi. Left kidney: No hydronephrosis. No renal or ureteral calculi. Adrenal glands: Within normal limits Vascular structures: Atherosclerosis of the abdominal aorta and major branches. Lymph nodes: No lymphadenopathy by size criteria Pelvis: Small bowel: No significant distention. Appendix: Not visualized. Colon: No distention or acute pericolonic edema. Moderate stool burden. Colonic diverticulosis. Peritoneum: No free intraperitoneal fluid or air. Bones: No acute bone findings. Bladder: Unremarkable. Reproductive organs: No acute findings. Soft tissues: Battery pack residing in the right lateral subcutaneous soft tissues. Note that evaluation of the bowel and solid organs is somewhat limited due to lack of intravenous and oral contrast. IMPRESSION: 1. No acute abdominopelvic findings. 2. Colonic diverticulosis without diverticulitis. 3. Moderate stool burden. Electronically signed by: Chaz Drummond MD 07/06/2023 12:22 AM CDT Due to temporary technical issues with the PACS/Fluency reporting system, reports are being signed by the in house radiologists without review as a courtesy to insure prompt reporting. The interpreting radiologist is fully responsible for the content of the report.
== END 2023-07-06 01:07 | disposition home or self-care (01) ==
LOC: ER 23:02
DX: R30.0 Dysuria (principal); R10.9 Unspecified abdominal pain; I10 Essential (primary) hypertension; Z88.0 Allergy status to penicillin; Z96.89 Presence of other specified functional implants
CPT/HCPCS: 85025; 81001; 36415; 83690; 80053; 74176; 96360; 99285; J7030

== ENCOUNTER 2023-12-15 04:11 | Emergency (ER) | payer OTHER ==
--- OUTSIDE RECORDS SUMMARY | 2023-12-15 04:14 | XMS REPORT | Continuity of Care Document ---
Author Name Unknown Address [address] [facility] [address] [place] [address] [facility] thconnect Address [address] [facility]. [address] [place] [address] Care Team Providers Care Book Or Script Editor Name Role Phone JOEY PAZ Primary Care Physician Laurent lott [email or web address] Attending Clinician Carlos Manuel Lewis MD Attending Clinician [phone] CARLOS MANUEL RAMÍREZ Attending Clinician CARLOS MANUEL Awad Attending Clinician Ivis Merlosb, [facility] Main Attending Clinician Celestino Hall MD Attending Clinician [phone] CELESTINO SHAW Attending Clinician Nba mcnally Doctor Unassigned, [place] Attending Clinician U faviola Olivo MD, Randall Gifford Attending Clinician 1, [facility] Attending Clinician Gabbie Adame PHD Attending Clinician [phone] [email or web address]_S Admitting Clinician Laurent lott Payers Payer Name Policy Type Policy Number Effective Date Expirati on Date Source Problems Condition Name Condition Details Condition Category Status Onset Date Resolution Date Last Treatment Date Treating Clinician Comments Source Pain Pain Disease Active 04-21 00:00: 00 [facility] 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 ICD10 Diagnosis Term [employer]asper [employer] Utility [facility] Allergies, Adverse Reactions, Alerts Allergy Name Allergy Type Status Severity Reaction(s) Onset Date Inactive Date Treating Clinician Comments Source Codeine Propensi ty to adverse reaction s to drug Active Nausea and/or Vomiting 04-24 00:00: 00 [facility] CODEINE DRUG INGREDI Active Med N/V 04-24 00:00: 00 [facility] PENICILL INS Drug Class Active High SOB 04-29 00:00: 00 [facility] Penicill ins Propensi ty to adverse reaction s to drug Active Swelling 04-29 00:00: 00 [facility] Penicill ins Propensi ty to adverse reaction s to drug Active Swelling 04-29 00:00: 00 [facility] Social History Social Habit Start Date Stop Date Quantity Comments [facility] function 2019-10-26 00:00:00 2019-10-26 00:00:00 [facility] Alcohol intake 2018-10-26 00:00:00 2018-10-26 00:00:00 0 /d [facility] Tobacco use and exposure 2016-04-14 00:00:00 2016-04-14 00:00:00 Smokeless tobacco non-user [facility] Sex Assigned At 1945 00:00:00 1945 00:00:00 [facility] Smoking Status Start Date Stop Date Source Never smoked tobacco [facility] Medications Ordered Medication Name Filled Medication Name Start Date Stop Date Current Medication? Ordering Clinician Indication Dosage Frequency Signature (SIG) Comments Components Source pregabalin (LYRICA) 75 mg capsule 11-16 14:52: 40 11-16 00:00 :00 No 75mg Take 75 mg by mouth 2 (two) times daily. [facility] pregabalin (LYRICA) 75 mg capsule 11-16 00:00: 00 Yes [id number] 75mg Take 1 capsule by mouth 3 (three) times daily. [facility] contrast previously administere d 0 mL 11-09 15:15: 00 11-09 15:32 :00 No Intravenou s, ONCE, 1 dose, 11/09/18 at 1015, Routine [facility] iohexol (OMNIPAQUE 350 BULK-100 mL) injection 100 mL 11-09 15:15: 00 11-09 15:28 :00 No 100mL 100 mL, Intravenou s, ONCE, 1 dose, 11/09/18 at 1015, Routine [facility] diazepam (VALIUM) 5 mg tablet 07-07 16:55: 22 Yes 5mg Take 5 mg by mouth at bedtime. [facility] HYDROmorphO ne (DILAUDID) 2 mg tablet 07-07 16:55: 22 Yes 4mg Take 4 mg by mouth 2 (two) times daily. [facility] pregabalin (LYRICA) 75 mg capsule 07-07 16:55: 22 Yes 75mg Take 75 mg by mouth 2 (two) times daily. [facility] amLODIPine 5 mg tablet 07-07 16:55: 22 Yes 5mg Take 5 mg by mouth daily. [facility] pravastatin 20 mg tablet 07-07 16:55: 22 Yes 20mg Take 20 mg by mouth at bedtime. [facility] irbesartan 300 mg tablet 07-07 16:55: 22 Yes 300mg Take 300 mg by mouth daily. [facility] baclofen 10 mg tablet 07-07 16:55: 22 Yes 10mg Take 10 mg by mouth 3 (three) times daily. [facility] HYDROcodone -acetaminop hen 10-325 mg tablet 07-07 16:55: 22 Yes 1{tbl} Take 1-2 tablets by mouth every 6 (six) hours. [facility] fluticasone -vilanterol (BREO ELLIPTA) 100-25 mcg/dose DsDv 07-07 16:55: 22 Yes 1{puff} Inhale 1 Puff daily. [facility] CELEBREX 200 MG ORAL CAP 07-07 16:55: 22 Yes Take 200 mg by mouth daily. [facility] levothyroxi ne (SYNTHROID) 50 mcg tablet 07-07 16:55: 22 Yes 50ug Take 50 mcg by mouth every morning. [facility] CELEBREX 200 MG ORAL CAP 07-07 11:55: 22 Yes Take 200 mg by mouth daily. [facility] levothyroxi ne (SYNTHROID) 50 mcg tablet 07-07 11:55: 22 Yes 50ug Take 50 mcg by mouth every morning. [facility] diazepam (VALIUM) 5 mg tablet 07-07 11:55: 22 Yes 5mg Take 5 mg by mouth at bedtime. [facility] HYDROmorphO ne (DILAUDID) 2 mg tablet 07-07 11:55: 22 Yes 4mg Take 4 mg by mouth 2 (two) times daily. [facility] amLODIPine 5 mg tablet 07-07 11:55: 22 Yes 5mg Take 5 mg by mouth daily. [facility] pravastatin 20 mg tablet 07-07 11:55: 22 Yes 20mg Take 20 mg by mouth at bedtime. [facility] irbesartan 300 mg tablet 07-07 11:55: 22 Yes 300mg Take 300 mg by mouth daily. [facility] baclofen 10 mg tablet 07-07 11:55: 22 Yes 10mg Take 10 mg by mouth 3 (three) times daily. [facility] HYDROcodone -acetaminop hen 10-325 mg tablet 07-07 11:55: 22 Yes 1{tbl} Take 1-2 tablets by mouth every 6 (six) hours. [facility] fluticasone -vilanterol (BREO ELLIPTA) 100-25 mcg/dose DsDv 07-07 11:55: 22 Yes 1{puff} Inhale 1 Puff daily. [facility] Vital Signs Vital Name Observation Time Observation Value Comments S everardo Systolic blood pressure 2018-11-16 14:29:00 116 mm[Hg] [facility] Diastolic blood pressure 2018-11-16 14:29:00 65 mm[Hg] [facility] Heart rate 2018-11-16 14:29:00 76 /min [facility] Body temperature 2018-11-16 14:29:00 36.33 Ashley [facility] Respiratory rate 2018-11-16 14:29:00 22 /min [facility] Body height 2018-11-16 14:29:00 162.6 cm [facility] Body weight 2018-11-16 14:29:00 65.499 kg [facility] BMI 2018-11-16 14:29:00 24.79 kg/m2 [facility] Systolic blood pressure 2018-11-16 14:29:00 116 mm[Hg] [facility] Diastolic blood pressure 2018-11-16 14:29:00 65 mm[Hg] [facility] Heart rate 2018-11-16 14:29:00 76 /min [facility] Body temperature 2018-11-16 14:29:00 36.33 [facility] Respiratory rate 2018-11-16 14:29:00 22 /min [facility] Body height 2018-11-16 14:29:00 162.6 cm [facility] Body weight 2018-11-16 14:29:00 65.499 kg [facility] BMI 2018-11-16 14:29:00 24.79 kg/m2 [facility] Systolic blood pressure 2018-10-26 21:51:00 130 mm[Hg] [facility] Diastolic blood pressure 2018-10-26 21:51:00 71 mm[Hg] [facility] Heart rate 2018-10-26 21:51:00 84 /min [facility] Body temperature 2018-10-26 21:51:00 36.61 [facility] Respiratory rate 2018-10-26 21:51:00 17 /min [facility] Body height 2018-10-26 21:51:00 162.6 cm [facility] Body weight 2018-10-26 21:51:00 65.772 kg [facility] BMI 2018-10-26 21:51:00 24.89 kg/m2 [facility] Procedures Procedure Date / Time Performed Performing Clinicia n Source CONSENT/REFUSAL FOR DIAGNOSIS AND TREATMENT 2022-12-31 15:26:13 Doctor Unassigned, [place] [facility] ASSIGNMENT OF BENEFITS 2022-12-31 15:25:53 Docto r Unassigned, [place] [facility] XR LUMBAR SPINE 2 VW 2019-04-26 16:38:40 Aaron Shaw [facility] ASSIGNMENT OF BENEFITS 2019-04-26 16:19:35 Docto r Unassigned, [place] [facility] CT ANGIOGRAM HEAD 2018-11-09 15:39:20 Randall Olivo [facility] CT ANGIOGRAM NECK 2018-11-09 15:38:07 Randall Olivo [facility] CONSENT/REFUSAL FOR DIAGNOSIS AND TREATMENT 2018-11-09 14:51:02 Doctor Unassigned, [place] [facility] ASSIGNMENT OF BENEFITS 2018-11-09 14:50:43 Docto r Unassigned, [place] [facility] ASSIGNMENT OF BENEFITS 2018-10-26 20:32:06 Docto r Unassigned, [place] [facility] Encounters Start Date/Time End Date/Time Encounter Type Admission Type Attending Clinicians Care Facility Care Department Encounter ID Source 2023-01-20 00:00:00 2023-01-20 00:00:00 Outpatient GC_GCBZW_Ka diyala_S [facility] [id number] [facility] 2023-01-14 16:58:00 2023-01-14 23:59:00 Hospital Encounter Carlos Manuel Ramírez 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 350.1.13.10 4.2.7.2.686 [id number] [facility] 2019-04-26 10:24:00 2019-04-26 23:59:00 Hospital Encounter Celestino Shaw [facility] 1.114 350.1.13.10 4.2.7.2.686 [id number] 2019-04-26 10:24:00 2019-04-26 23:59:00 Hospital Encounter Celestino Shaw [facility] 1.114 350.1.13.10 4.2.7.2.686 [id number] [facility] 2019-04-26 00:00:00 2019-04-26 00:00:00 Orders Only Doctor Unassigned, [place] [facility] 1.2.840.114 350.1.13.10 4.2.7.2.686 [id number] 2019-04-26 00:00:00 2019-04-26 00:00:00 Orders Only Doctor Unassigned, [place] [facility] 1.2.840.114 350.1.13.10 4.2.7.2.686 [id number] [facility] 2018-11-16 09:27:00 2018-11-16 10:11:00 Office Visit Randall Olivo [facility] 1.2.840.114 350.1.13.10 4.2.7.2.686 [id number] 2018-11-16 09:27:00 2018-11-16 10:11:00 Office Visit Randall Olivo [facility] 1.2.840.114 350.1.13.10 4.2.7.2.686 [id number] [facility] 2018-11-09 09:54:01 2018-11-09 23:59:00 Hospital Encounter Randall Olivo [facility] 1.2.840.114 350.1.13.10 4.2.7.2.686 [id number] 2018-11-09 09:54:01 2018-11-09 23:59:00 Hospital Encounter Randall Olivo [facility] 1.2.840.114 350.1.13.10 4.2.7.2.686 [id number] [facility] 2018-11-09 09:53:17 2018-11-09 09:53:17 Hospital Encounter Randall Olivo [facility] 1.2.840.114 350.1.13.10 4.2.7.2.686 [id number] [facility] 2018-11-09 09:53:17 2018-11-09 09:53:17 Hospital Encounter Randall Olivo 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 Scalper Operator Visit 1, [facility] Gabbie Olivo [facility] 1.2.840.114 350.1.13.10 4.2.7.2.686 [id number] [facility] 2018-10-26 16:24:25 2018-10-26 17:09:11 Office Visit Randall Olivo [facility] 1.2.840.114 350.1.13.10 4.2.7.2.686 [id number] [facility] 2018-10-26 00:00:00 2018-10-26 00:00:00 Orders Only Doctor Unassigned, [place] [facility] 1.2.840.114 350.1.13.10 4.2.7.2.686 [id number] [facility] Results Test Description Test Time [...] the severity of changes noted since April 2015udy. L3-L4: Disc space is narrowed by more [...] L3-L4 with interval worsening sinceFebruary 2015 study. Mamb, Radiant Results Inft User - 04/26/2019 11:00 [...] L3-L4 with interval worsening sinceFebruary 2016 study. [facility] CT ANGIOGRAM HEAD 2018-10 16:23:0 8 No [...] utilizing trigeminal neuralgia protocol may provide moreinformation. [facility] CT ANGIOGRAM NECK 2018-10 16:23:0 8 No [...] resultsin no more than mild luminal narrowing. Mamb, Radiant Results Inft User - 11/09/2018 11:25 [...] utilizing trigeminal neuralgia protocol may provide moreinformation. [facility]
[2023-12-15 04:42] LABS: Absolute Eosinophils 0.1 K/uL (0-0.5); Absolute Lymphocytes (CBC) 0.9 K/uL (0.7-4.9); Absolute Monocytes 0.7 K/uL (0.1-1.3); Absolute Neutrophil 8.6 K/uL (1.8-8.0); Basophils % 0.1 % (0-1.3); Eosinophils % 0.6 % (0-4.4); Hemoglobin 12.1 g/dL (12.0-15.0); Lymphocytes % 8.8 % (15.3-44.8); MCH 31.1 pg (27.0-35.0); MCHC 34.5 g/dL (32.0-36.0); MCV 90.3 fL (80-100); MPV 8.2 fL (7.6-11.3); Monocytes % 6.9 % (3.3-12.3); Neutrophils % 83.6 % (41.7-73.7); Platelets 180 thou/uL (152-406); RBC Red Blood Cell Count 3.88 M/uL (3.86-4.86); Red Cell Distribution Width 13.6 % (12.1-15.2)
[2023-12-15 04:54] LABS: Albumin 3.6 g/dL (3.4-5.0); Anion Gap 10.1 mEq/L (5.0-15.0); Bilirubin Total 0.7 mg/dL (0.2-1.0); Globulin 3.7 g/dL (2.3-3.5); Potassium 4.1 mEq/L (3.5-5.1); Protein, Total 7.3 g/dL (6.4-8.2)
[2023-12-15 04:58] LABS: Specific Gravity 1.018 (1.005-1.030); Sqamous Epithelial <5 /HPF (None Seen); Urine Bacteria >50 /HPF (<20); Urine Bilirubin NEGATIVE (Negative); Urine Blood Negative (Negative); Urine Clarity Extremely Turbid (Clear); Urine Color Light-Yellow (Yellow); Urine Culture Reflex Order REFLEXED; Urine Glucose NEGATIVE (Negative); Urine Ketones NEGATIVE (Negative); Urine Microscopic Reflex YN ORDER UMIC; Urine Mucus Slight /HPF (None Seen); Urine Nitrite 1+ (Negative); Urine Protein TRACE (Negative); Urine RBC <5 /HPF (None Seen); Urine Urobilinogen Normal (Normal); Urine WBC >50 /HPF (<5); Urine WBC Clump Rare /HPF (None Seen)
--- NOTE | 2023-12-15 04:59 | RAD REPORT ---
CLINICAL HISTORY: back pain; pain pump COMPARISON: None. TECHNIQUE: CT ABDOMEN PELVIS WITHOUT IV CONTRAST on 12/15/2023 4:15 AM CDT This exam was performed according to our departmental dose-optimization program, which includes autom ated exposure control, adjustment of the mA and/or kV according to patient size and/or use of iterative reconstruction technique. FINDINGS: Lower lungs are clear. Abdomen: Liver is fatty in attenuation. There is no biliary dilatation. Gallbladder is normal in appe arance. The pancreas and spleen are normal in appearance. The adrenal glands and kidneys are unremarkable. Abdominal aorta is densely calcified without aneurysm. There is no free air. There is no retroperiton eal adenopathy. Baclofen pain pump is present in the right lower quadrant. Pelvis: There is large amount of stool in the cecum and ascending colon. Urinary bladder is unremarka ble. There is no free fluid. Hysterectomy was performed. Appendix is not clearly seen. Skeleton: There are no acute osseous findings. No suspicious bony lesions. IMPRESSION: No acute inflammatory process. Electronically signed by: Chapo Cordova MD 12/15/2023 04:55 AM CDT RP Due to temporary technical issues with the [employer] reporting system, reports are being benigno d by the in-house radiologist without review as a courtesy to ensure prompt reporting the interpreting radiologist is fully responsible for the content of the report. Transcribed Date/Time: 12/15/2023 4:59 AM
[2023-12-15] MEDS ORDERED: Levofloxacin500mg IV 500 MG/100 ML BAG IV ONE (05:13)
--- NOTE | 2023-12-15 05:14 | ER ---
Nurse's Notes [facility] Name: Felisa Aguilar Age: 78 yrs Sex: Female : 1945 Arrival Date: 12/15/2023 Time: 04:11 Bed 6 Private MD: Diagnosis: Chronic low back pain, UTI Presentation: 12/14 04:13 Chief complaint: Patient states: I slipped and fell 2 days ago and tonight the pain has bm8 just been unbearable. my right leg below the knee has been numb since this moring. Coronavirus screen: At this time, the client does not indicate any symptoms associated with coronavirus-19. Ebola Screen: Patient negative for fever greater than or equal to 101.5 degrees Fahrenheit, and additional compatible Ebola Virus Disease symptoms Patient denies exposure to infectious person. Patient denies travel to an Ebola-affected area in the 21 days before illness onset. No symptoms or risks identified at this time. Initial Sepsis Screen: Does the patient meet any 2 criteria? No. Patient's initial sepsis screen is negative. Does the patient have a suspected source of infection? No. Patient's initial sepsis screen is negative. Risk Assessment: Do you want to hurt yourself or someone else? Patient reports no desire to harm self or others. Onset of symptoms was December 13, 2023. Care prior to arrival: Medication(s) given: zofran 4 mg, fentanyl 50 mcg IV initiated. 20 GA, in the right forearm. 04:13 Method Of Arrival: EMS: [facility] bm8 04:13 Acuity: LORIE 3 bm8 Triage Assessment: 04:16 General: Appears in no apparent distress. uncomfortable, Behavior is calm, cooperative, bm8 appropriate for age. Pain: Complains of pain in back Pain currently is 8 out of 10 on a pain scale. Quality of pain is described as aching, crampy, sharp, Pain began 2-3 days ago. EENT: No deficits noted. No signs and/or symptoms were reported regarding the EENT system. Neuro: No deficits noted. Level of Consciousness is awake, alert, obeys commands, Oriented to person, place, time, situation, Appropriate for age Numbness in right knee, right garcia, anterior aspect of right ankle and dorsum of right foot. Cardiovascular: Denies chest pain, Capillary refill < 3 seconds Patient's skin is warm and dry. Respiratory: Airway is patent Respiratory effort is even, unlabored, Respiratory pattern is regular, symmetrical. GI: No signs and/or symptoms were reported involving the gastrointestinal system. : No signs and/or symptoms were reported regarding the genitourinary system. Derm: No signs and/or symptoms reported regarding the dermatologic system. Musculoskeletal: Capillary refill < 3 seconds, in bilateral fingers. toes. Reports pain in back. Historical: - Allergies: 04:16 PENICILLINS; bm8 - Home Meds: 04:16 amlodipine oral [Active]; [place] Oral [Active]; bm8 - PMHx: 04:16 chronic back pain; Hypertensive disorder; bm8 - PSHx: 04:16 Bladder lift; pain pump; bm8 - Immunization history:: Adult Immunizations up to date. - Infectious Disease History:: Denies. - Social history:: Smoking status: Patient denies any tobacco usage or history of. Screenin:26 [facility] ED Fall Risk Assessment (Adult) History of falling in the last 3 months, bm8 including since admission Yes- single mechanical fall (1 pt) Confusion or Disorientation No (0 pts) Intoxicated or Sedated No (0 pts) Impaired Gait No (0 pts) Mobility Assist Device Used No (0 pt) Altered Elimination No (0 pt) Score/Fall Risk Level 0 - 2 = Low Risk Oriented to surroundings, Maintained a safe environment, Educated pt \T\ family on fall prevention, incl call for assistance when getting out of bed, Assessed \T\ reinforced patient's understanding of fall precautions, Provided non-skid footwear, Hourly rounding (assess needs \T\ fall precautionary measures) done, Used ambulatory aids as needed (educated on \T\ assisted with), Used gait belt as appropriate. Abuse screen: Denies threats or abuse. Nutritional screening: No deficits noted. Nutritional screening: No deficits noted. Tuberculosis screening: No symptoms or risk factors identified. Assessment: 05:19 Reassessment: Patient appears in no apparent distress at this time. Patient and/or bm8 family updated on plan of care and expected duration. Pain level reassessed. Patient is alert, oriented x 3, equal unlabored respirations, skin warm/dry/pink. Patient states feeling better. Patient states symptoms have improved. Pain: Complains of pain in back Pain currently is 5 out of 10 on a pain scale. Neuro: No deficits noted. Level of Consciousness is awake, alert, obeys commands, Oriented to person, place, time, situation, Appropriate for age. 05:21 Reassessment: pt awaiting completion of antibiotics before discharge. bm8 Vital Signs: 04:13 BP 152 / 88; Pulse 103; Resp 18; Temp 98.2; Pulse Ox 98% on R/A; Weight 72.57 kg; bm8 Height 5 ft. 3 in. ; Pain 8/10; 05:19 BP 147 / 71; Pulse 95; Resp 18; Temp 98.2; Pulse Ox 95% on R/A; Pain 5/10; bm8 04:13 Body Mass Index 28.34 (72.57 kg, 160.02 cm) bm8 04:13 Pain Scale: Adult bm8 05:19 Pain Scale: Adult bm8 [place] Coma Score: 04:26 Eye Response: spontaneous(4). Motor Response: obeys commands(6). Verbal Response: bm8 oriented(5). Total: 15. 05:19 Eye Response: spontaneous(4). Motor Response: obeys commands(6). Verbal Response: bm8 oriented(5). Total: 15. ED Course: 04:13 Patient arrived in ED. bm8 04:14 Reynaldo Camarillo MD is Attending Physician. sp3 04:16 Triage completed. bm8 04:16 Arm band placed on right wrist. Patient placed in an exam room, on a stretcher, on bm8 pulse oximetry. 04:26 Patient has correct armband on for positive identification. Placed in gown. Bed in low bm8 position. Call light in reach. Side rails up X2. Client placed on continuous cardiac and pulse oximetry monitoring. NIBP monitoring applied. Pulse ox on. NIBP on. Door closed. Noise minimized. Lights dimmed. Warm blanket given. Pillow given. Verbal reassurance given. Head of bed elevated. 04:26 No provider procedures requiring assistance completed. Initial lab(s) drawn, by me, bm8 sent to lab. Maintain EMS IV. Dressing intact. Good blood return noted. Site clean \T\ dry. Gauge \T\ site: 20g RFA. Flushed with 10 mL NS. Patient maintains SpO2 saturation greater than 95% on room air. 04:40 CT Abd/Pelvis - Without Contrast In Process Unspecified. EDMS 05:11 Zoltan Ramírez, RN is Primary Nurse. bm8 05:19 Provided Education on: post er care. bm8 05:32 IV discontinued, intact, bleeding controlled, No redness/swelling at site. Pressure bm8 dressing applied. Administered Medications: 05:19 Drug: levofloxacin IVPB 250 mg 50 ml IVPB once over 20 mins Volume: 50 ml; Route: IVPB; bm8 Infused Over: 20 mins; Site: right forearm; 05:33 Follow up: Response: No adverse reaction; IV Status: Completed infusion; IV Intake: [id number] Medication: 04:26 VIS not applicable for this client. bm8 Intake: 05:33 IV: 25ml; Total: 25ml. bm8 Outcome: 05:13 Discharge ordered by . sp3 05:32 Discharged to home via wheelchair, bm8 05:32 Condition: stable 05:32 Discharge instructions given to patient, Instructed on discharge instructions, follow up and referral plans. no drinking with medication, no driving heavy equipment, medication usage, safety practices, Demonstrated understanding of instructions, follow-up care, medications, Prescriptions given X 1, 05:34 Patient left the ED. bm8 Addendum: 12/19/2023 11:57 Addendum: Culture Results: Positive urine culture. Bacteria is resistant to, has j l7 intermediate sensitivity, or is not tested against prescribed antibiotics. Report given to CARLOS EDUARDO for further evaluation and then to gate attendant for follow up with patient. Phone call Attempt #1 No answer, no voicemail. Signatures: Dispatcher [employer] EDMar Garduno, RN RN jl7 Reynaldo Camarillo MD MD sp3 Zoltan Ramírez, RN RN bm8
--- NOTE | 2023-12-15 05:14 | EDPHYS ---
Physician Documentation [facility] Name: Felisa Aguilar Age: 78 yrs Sex: Female : 1945 Arrival Date: 12/15/2023 Time: 04:11 Bed 6 Private MD: ED Physician Reynaldo Camarillo HPI: 12/14 04:22 This 78 yrs old Female presents to ER via EMS with complaints of Back Pain. sp3 04:22 78-year-old female with history chronic back pain, hypertension, prior polio now sp3 presents to the ED with chief complaint low back pain. Patient thinks that her fentanyl pump is potentially malfunctioning. She is here "to get some x-rays to make sure things okay". She will follow-up with her pain specialist in [place] regarding the pump. She denies any other symptoms except mild right lower extremity paresthesias which she has had before. She also took a mechanical ground-level fall slow and controlled 2 days ago. Today she had activated EMS due to her not being able to keep her hydrocodone down which she took because she felt the pain pump was not working. She denies headache, neck pain, fever, chest pain, shortness of breath, upper back pain, abdominal pain, vomiting, diarrhea, rash, bleeding, or any other signs or symptoms on ROS at this time.. Historical: - Allergies: 04:16 PENICILLINS; bm8 - Home Meds: 04:16 amlodipine oral [Active]; [place] Oral [Active]; bm8 - PMHx: 04:16 chronic back pain; Hypertensive disorder; bm8 - PSHx: 04:16 Bladder lift; pain pump; bm8 - Immunization history:: Adult Immunizations up to date. - Infectious Disease History:: Denies. - Social history:: Smoking status: Patient denies any tobacco usage or history of. ROS: 04:23 Constitutional: Negative for fever, chills, and weight loss, Eyes: Negative for injury, sp3 pain, redness, and discharge, Neck: Negative for injury, pain, and swelling, Cardiovascular: Negative for chest pain, palpitations, and edema, Respiratory: Negative for shortness of breath, cough, wheezing, and pleuritic chest pain, Abdomen/GI: Negative for abdominal pain, nausea, vomiting, diarrhea, and constipation, Skin: Negative for injury, rash, and discoloration, Psych: Negative for depression, anxiety, suicide ideation, homicidal ideation, and hallucinations, Allergy/Immunology: Negative for hives, rash, and allergies, Endocrine: Negative for neck swelling, polydipsia, polyuria, polyphagia, and marked weight changes, Hematologic/Lymphatic: Negative for swollen nodes, abnormal bleeding, and unusual bruising, 04:23 All other systems are negative, Exam: 04:24 Constitutional: This is a well developed, well nourished patient who is awake, alert, sp3 and in no acute distress. Head/Face: Normocephalic, atraumatic. Eyes: Pupils equal round and reactive to light, extra-ocular motions intact. Lids and lashes normal. Conjunctiva and sclera are non-icteric and not injected. Cornea within normal limits. Periorbital areas with no swelling, redness, or edema. Neck: Trachea midline, no thyromegaly or masses palpated, and no cervical lymphadenopathy. Supple, full range of motion without nuchal rigidity, or vertebral point tenderness. No Meningismus. Chest/axilla: Normal chest wall appearance and motion. Nontender with no deformity. No lesions are appreciated. Cardiovascular: Regular rate and rhythm with a normal S1 and S2. No gallops, murmurs, or rubs. Normal PMI, no JVD. No pulse deficits. Respiratory: Lungs have equal breath sounds bilaterally, clear to auscultation and percussion. No rales, rhonchi or wheezes noted. No increased work of breathing, no retractions or nasal flaring. Abdomen/GI: Soft, non-tender, with normal bowel sounds. No distension or tympany. No guarding or rebound. No evidence of tenderness throughout. Skin: Warm, dry with normal turgor. Normal color with no rashes, no lesions, and no evidence of cellulitis. MS/ Extremity: Pulses equal, no cyanosis. Neurovascular intact. Full, normal range of motion. Neuro: Awake and alert, GCS 15, oriented to person, place, time, and situation. Cranial nerves II-XII grossly intact. Motor strength 5/5 in all extremities. Sensory grossly intact. Cerebellar exam normal. Normal gait. Psych: Awake, alert, with orientation to person, place and time. Behavior, mood, and affect are within normal limits. Vital Signs: 04:13 BP 152 / 88; Pulse 103; Resp 18; Temp 98.2; Pulse Ox 98% on R/A; Weight 72.57 kg; bm8 Height 5 ft. 3 in. ; Pain 8/10; 05:19 BP 147 / 71; Pulse 95; Resp 18; Temp 98.2; Pulse Ox 95% on R/A; Pain 5/10; bm8 04:13 Body Mass Index 28.34 (72.57 kg, 160.02 cm) bm8 04:13 Pain Scale: Adult bm8 05:19 Pain Scale: Adult bm8 [place] Coma Score: 04:26 Eye Response: spontaneous(4). Motor Response: obeys commands(6). Verbal Response: bm8 oriented(5). Total: 15. 05:19 Eye Response: spontaneous(4). Motor Response: obeys commands(6). Verbal Response: bm8 oriented(5). Total: 15. MDM: 04:14 Patient medically screened. sp3 04:24 Data reviewed: vital signs, nurses notes, lab test result(s), radiologic studies. ED sp3 course: 78-year-old female with acute on chronic low back pain and concerns of pain from not working. Differential diagnosis includes chronic back pain, pain pump malfunction, new or worsening inflammation/injury, and to a lesser degree some other process including AAA although unlikely. Will obtain CT scan of the abdomen pelvis, laboratory values, UA and general supportive care. EMS administered fentanyl and ondansetron prior to arrival. Disposition pending workup and patient course with probable discharge home if workup is negative.. 05:12 ED course: Workup demonstrates UTI on UA. Remainder of lab work normal. Current heart sp3 rate 88. Patient resting comfortably in no acute distress. CT scan demonstrates no significant abnormality. Patient will be discharged and she will follow-up with her chronic pain doctor.. 12/14 04:15 Order name: CBC with Diff; Complete Time: 05: sp3 12/14 04:15 Order name: CMP; Complete Time: 05: sp3 12/14 04:15 Order name: Lipase; Complete Time: 05: sp3 12/14 04:15 Order name: Urinalysis w/ reflexes; Complete Time: 05: sp3 12/14 05:02 Order name: Urine Culture EDMS 12/14 04:15 Order name: CT Abd/Pelvis - Without Contrast sp3 12/14 04:15 Order name: IV Saline Lock; Complete Time: 04:26 sp3 12/14 04:15 Order name: Labs collected and sent; Complete Time: 04: sp3 12/14 05:03 Order name: Recheck Vital Signs; Complete Time: 05:11 sp3 Administered Medications: 05:19 Drug: levofloxacin IVPB 250 mg 50 ml IVPB once over 20 mins Volume: 50 ml; Route: IVPB; bm8 Infused Over: 20 mins; Site: right forearm; 05:33 Follow up: Response: No adverse reaction; IV Status: Completed infusion; IV Intake: [id number] Disposition Summary: 12/15/23 05:13 Discharge Ordered Notes: Location: Home sp3 Condition: Stable sp3 Diagnosis - Chronic low back pain, UTI sp3 Followup: sp3 - With: Private Physician - When: Upon discharge from the Emergency Department - Reason: Continuance of care Discharge Instructions: - Discharge Summary Sheet sp3 - Chronic Back Pain sp3 - Urinary Tract Infection, Adult sp3 Forms: - Medication Reconciliation Form sp3 - Antibiotic Education sp3 - Prescription Opioid Use sp3 - Patient Portal Instructions sp3 - Leadership Thank You Letter sp3 Prescriptions: - levofloxacin 250 mg Oral tablet - take 1 tablet ORAL route once daily; 5 tablet; Refills: 0, Product Selection sp3 Permitted Signatures: Dispatcher [employer] EDReynaldo Renee MD MD sp3 Zoltan Ramírez, RN RN bm8 Corrections: (The following items were deleted from the chart) 04:16 04:16 CBC+H.LAB.BRZ ordered. EDMS EDMS 04:16 04:16 COMPREHENSIVE METABOLIC PANEL+C.LAB.BRZ ordered. EDMS EDMS 04:16 04:16 LIPASE+C.LAB.BRZ ordered. EDMS EDMS 04:16 04:16 Urinalysis+U.LAB.BRZ ordered. EDMS EDMS 04:16 04:16 Abdomen Pelvis Wo Con+CT.RAD.BRZ ordered. EDMS EDMS
[2023-12-15 05:41] VITALS: TEMP 98.2
[2023-12-15 05:45] VITALS: BP 147/71; O2SAT 95
== END 2023-12-15 05:34 | disposition home or self-care (01) ==
LOC: ER 04:11
DX: N39.0 Urinary tract infection, site not specified (principal); I10 Essential (primary) hypertension; Z97.8 Presence of other specified devices
CPT/HCPCS: 36415; 74176; 80053; 81001; 83690; 85025; 87077; 87086; 87088; 87186; 96374; 99284